=== PATIENT | male | born 1945 | race Asian ===

== ENCOUNTER 2018-05-12 09:33 | Day surgery (SDC) | payer OTHER ==
[2018-05-11 11:35] VITALS: BMI 32.4
[2018-05-12] MEDS ORDERED: OFLOXACIN 0.3% OPHTHALMIC SOLUTION 5 ML BOTTLE ONE (10:14)
[2018-05-12] MEDS ORDERED: PHENYLEPHRINE 2.5% OPHTH SOLN 15 ML BOTTLE ONE (10:14)
[2018-05-12] MEDS ORDERED: CYCLOPENTOLATE HCL 1% OPHTH SOLN 2 ML BOTTLE ONE (10:14)
[2018-05-12] MEDS ORDERED: TROPICAMIDE 1% OPHTH SOLN 15 ML BOTTLE ONE (10:15)
[2018-05-12] MEDS ORDERED: KETOROLAC TROMETHAMINE 0.5% EYE DROP 1 DROP DROPS ONE (10:15)
[2018-05-12 10:25] VITALS: TEMP 97.9
[2018-05-12] MEDS: PHENYLEPHRINE 2.5% OPHTH SOLN 15 ML BOTTLE OP SCH ×2 (10:28→10:33)
[2018-05-12] MEDS: TROPICAMIDE 1% OPHTH SOLN 15 ML BOTTLE OP SCH ×2 (10:28→10:34)
[2018-05-12] MEDS: OFLOXACIN 0.3% OPHTHALMIC SOLUTION 5 ML BOTTLE OP SCH ×2 (10:28→10:33)
[2018-05-12] MEDS: KETOROLAC TROMETHAMINE 0.5% EYE DROP 1 DROP DROPS OP SCH ×2 (10:28→10:33)
[2018-05-12] MEDS: CYCLOPENTOLATE HCL 1% OPHTH SOLN 2 ML BOTTLE OP SCH ×2 (10:30→10:33)
[2018-05-12] MEDS ORDERED: PROPOFOL 20 ML ONE (11:20)
[2018-05-12] MEDS ORDERED: ACETAMINOPHEN 325 MG TABLET (FP) PO PRN (11:24)
[2018-05-12] MEDS ORDERED: BUPIVACAINE HCL/PF 0.75% 10 ML VIAL NR ONE (11:32)
[2018-05-12] MEDS ORDERED: LIDOCAINE HCL/PF 2% SDV 5ML VIAL INF ONE (11:32)
[2018-05-12] MEDS ORDERED: POVIDONE-IODINE 5% OPHTHALMIC PREP 30 ML SOLUTION OD ONE (11:35)
[2018-05-12] MEDS ORDERED: LIDOCAINE HCL 1% PRESERVATIVE FREE - 30ML VIAL IO ONE (11:39)
[2018-05-12] MEDS ORDERED: CHONDROITIN SU A/HYALUR SOD 1 KIT IO ONE (11:39)
[2018-05-12] MEDS ORDERED: BSS (NA/CA/MG/K) BALANCED SALT SOLUTION OPHTH SOLN 15 ML BOTTLE OD ONE (11:39)
[2018-05-12] MEDS ORDERED: HYALURONATE SODIUM 14 MG/ML DISP.SYRIN IO ONE (11:39)
[2018-05-12] MEDS ORDERED: TRYPAN BLUE 0.5 ML DISP.SYRIN IO ONE (11:39)
[2018-05-12] MEDS ORDERED: EPINEPHrine/PF 1 MG/1 ML (1:1,000) AMPULE SQ ONE ×2 (11:54→12:10)
[2018-05-12] MEDS ORDERED: EPINEPHrine/PF 1 MG/1 ML (1:1,000) AMPULE ONE (12:04)
[2018-05-12 12:59] VITALS: PULSE 60
[2018-05-12 13:44] VITALS: BP 160/70
--- NOTE | 2018-05-13 02:00 | OP ---
DATE OF OPERATION: 05/12/2018 PREOPERATIVE DIAGNOSIS: Cataract right eye. ASSOCIATIVE DIAGNOSIS: Pseudoexfoliation, persistent myosis. OPERATION: Phacoemulsification of right cataract, capsular staining with Trypan blue, iris hooks and posterior chamber intraocular lens implantation, lens used [id number], 25.0 Diopter power, Serial No. [id number]. POSTOPERATIVE DIAGNOSIS: Cataract right eye. SURGEON: Ashley Jimenes M.D. ANESTHESIA: Peribulbar/modified Van Lint/MAC. COMPLICATIONS: None. PROCEDURE: The patient was brought to the operating room and correctly identified along with the operative site as well as correct intraocular lens moralez. He was then given a peribulbar block under sedation with 5 mL of 1:1 mixture of 2% lidocaine and 0.75% bupivacaine. A few mL's of the same mixture was given as a modified Van Lint block. The eye was then prepped and draped in the usual sterile fashion, including 5% betadine solution in the conjunctival sac and an eyelid drape. An eyelid speculum was then placed into the right eye. The eye was inspected and a 4-mm pupil with a white lens was noted. Pseudoexfoliation material was as well noted around the pupil. A paracentesis port was created. Lidocaine 1% preservative free was injected intracameral at approximately 0.5 mL. An air bubble was placed into the anterior chamber. Beneath the air bubble, the capsule was then stained with Trypan blue. The Trypan blue was then irrigated and aspirated with the remaining 0.5 mL of the preservative-free lidocaine 1%. Viscoelastic was injected to inflate the anterior chamber. Five additional paracentesis ports were created and a temporal clear corneal wound was created. Iris hooks were then placed through the paracentesis ports to expand the pupil. Once the pupil was an adequate size, a continuous circular capsulorrhexis was successfully performed. The nucleus was then hydrodissected with BSS and removed with phacoemulsification. The lens seemed to be dense and a significant amount of energy was used to create a central groove and finally a quadrant as well as to phacoemulsify each quadrant. Throughout the procedure Viscoat was placed to protect the cornea. At the end of the procedure, a small amount of residual cortical material was irrigated and aspirated from the eye. Viscoelastic was injected to inflate the capsular bag. The lens was then injected into the capsular bag without complication. The iris hooks were then removed from the eye. Irrigation and aspiration was then performed of Viscoelastic. All wounds were then stromal hydrated and at the end of the procedure the wounds were checked. The main incision seemed to be leaking as there was a small temporal clear corneal wound burn with some distortion of the tissue. A single 10-0 nylon suture was placed and this sealed the incision. At the end of the surgery, all wounds were once again tested and found to be watertight. The intraocular lens was noted to be well centered and covered by the anterior capsular border. Topical Vancomycin and betadine was given. The eye was patched and shielded. The patient was discharged from the operating room in stable condition. ASHLEY JIMENES M.D. [id number]
== END 2018-05-12 14:07 | disposition home or self-care (01) ==
LOC: JASU-SURG 09:33
PROVIDERS: ATTEND Ophthalmology
PROC: 08RJ3JZ Replacement of Right Lens with Synthetic Substitute, Percutaneous Approach (ICD-10-PCS; principal; 2018-05-12 11:00)
DX: H26.8 Other specified cataract (principal); H57.03 Miosis
CPT/HCPCS: 82962